=== PATIENT | male | born 1975 | race Caucasian/White ===

== ENCOUNTER 2024-03-09 14:51 | Inpatient (IN) | payer OTHER ==
[~2024-03-09] VITALS: Ht 172.7 cm; Wt 71.0 kg
[2024-03-09 15:46] LABS: BASOPHILS ABSOLUTE AUTO 0.11 K/mm3 (0.00-0.23); BASOPHILS PERCENT AUTO 1 % (0-2); EOSINOPHILS ABSOLUTE AUTO 0.21 K/mm3 (0.00-0.68); EOSINOPHILS PERCENT AUTO 2 % (0-6); Hematocrit 40.9 % (37.0-53.0); Hemoglobin 13.6 g/dL (13.5-17.5); IMMATURE GRAN ABSOLUTE AUTO 0.03 K/mm3 (0.00-0.10); IMMATURE GRAN PERCENT AUTO 0 % (0-1); LYMPHOCYTES ABSOLUTE AUTO 2.38 K/mm3 (0.84-5.20); LYMPHOCYTES PERCENT AUTO 20 % (21-46); MONOCYTES ABSOLUTE AUTO 0.89 K/mm3 (0.16-1.47); MONOCYTES PERCENT AUTO 7 % (4-13); Mean Corpuscular HGB 30.7 pg (26.0-34.0); Mean Corpuscular HGB Conc 33.3 g/dL (31.5-36.5); Mean Corpuscular Volume 92 fL (80-100); Mean Platelet Volume 10.3 fL (9.1-12.4); NEUTROPHILS ABSOLUTE AUTO 8.46 K/mm3 (1.96-9.15); NEUTROPHILS PERCENT AUTO 70 % (41-73); Platelet Count 304 K/mm3 (150-400); RDW Coefficient Variation 11.7 % (11.7-14.2); Red Blood Cell Count 4.43 M/mm3 (4.30-5.90); White Blood Cell Count 12.08 K/mm3 (4.00-11.30)
[2024-03-09 16:06] LABS: Albumin, Blood 2.5 g/dL (3.4-5.0); Albumin/Globulin Ratio 0.4 (0.8-1.8); Bilirubin, Total 1.3 mg/dL (0.1-1.0); Bun/Creatinine Ratio 21.1 (12.0-20.0); Calcium, Blood 9.4 mg/dL (8.5-10.1); Creatinine, Blood 0.52 mg/dL (0.60-1.20); Globulin, Blood 6.2 g/dL (2.2-4.0); Potassium, Blood 4.3 mmol/L (3.5-5.5); Total Protein, Blood 8.7 g/dL (6.4-8.2)
[2024-03-09] MEDS ORDERED: NS 1,000 ML IV SCH ×2 (17:10)
[2024-03-09] MEDS ORDERED: Vancomycin HCL 2,000 MG in NS 520 ML IV ONE (17:25)
[2024-03-09] MEDS ORDERED: Prinivil10 MG PO (18:00)
[2024-03-09] MEDS ORDERED: AMLODIPINE BESY10 MG PO (18:00)
[2024-03-09] MEDS ORDERED: Acetaminophen 325 MG TABLET PO PRN (18:55)
[2024-03-09] MEDS ORDERED: Bisacodyl 10 MG Supp PR PRN (18:55)
[2024-03-09] MEDS ORDERED: FLU VACC TS2024-25(6MOS UP)/PF 45 MCG/0.5 ML SYRINGE IM ONE (19:00)
[2024-03-09] MEDS ORDERED: Magnesium Hydroxide Conc 10 ML UDC PO PRN (19:00)
[2024-03-09] MEDS ORDERED: Ondansetron 4 MG TAB PO PRN (19:00)
[2024-03-09] MEDS ORDERED: Zolpidem Tartrate 5 MG Tab PO PRN (19:05)
[2024-03-09] MEDS ORDERED: NS 1,000 ML IV ONE (19:25)
[2024-03-09] MEDS ORDERED: AmLODIPine Besylate 5 MG Tab PO SCH (21:00)
[2024-03-09] MEDS ORDERED: Famotidine 20 MG Tab PO SCH (21:00)
[2024-03-09] MEDS ORDERED: Sennosides 8.6 MG Tab PO SCH (21:00)
[2024-03-09] MEDS ORDERED: Lactobacil 2-S.Thermo-Bifido 1 1 Cap PO SCH (21:00)
[2024-03-09] MEDS ORDERED: Docusate Sodium 100 MG Cap PO SCH (21:00)
[2024-03-09 22:17] VITALS: BP 116/75
[2024-03-10] MEDS ORDERED: Vancomycin HCL 1,000 MG in NS 250 ML IV SCH (02:00)
[2024-03-10 02:41] VITALS: BP 113/64
[2024-03-10] MEDS ORDERED: NS 250 ML IV PRN (02:45)
[2024-03-10 05:19] LABS: BASOPHILS ABSOLUTE AUTO 0.08 K/mm3 (0.00-0.23); BASOPHILS PERCENT AUTO 1 % (0-2); EOSINOPHILS ABSOLUTE AUTO 0.24 K/mm3 (0.00-0.68); EOSINOPHILS PERCENT AUTO 3 % (0-6); Hematocrit 28.7 % (37.0-53.0); Hemoglobin 9.6 g/dL (13.5-17.5); IMMATURE GRAN ABSOLUTE AUTO 0.03 K/mm3 (0.00-0.10); IMMATURE GRAN PERCENT AUTO 0 % (0-1); LYMPHOCYTES ABSOLUTE AUTO 1.69 K/mm3 (0.84-5.20); LYMPHOCYTES PERCENT AUTO 19 % (21-46); MONOCYTES ABSOLUTE AUTO 1.01 K/mm3 (0.16-1.47); MONOCYTES PERCENT AUTO 12 % (4-13); Mean Corpuscular HGB 31.1 pg (26.0-34.0); Mean Corpuscular HGB Conc 33.4 g/dL (31.5-36.5); Mean Corpuscular Volume 93 fL (80-100); Mean Platelet Volume 10.7 fL (9.1-12.4); NEUTROPHILS ABSOLUTE AUTO 5.75 K/mm3 (1.96-9.15); NEUTROPHILS PERCENT AUTO 65 % (41-73); Platelet Count 183 K/mm3 (150-400); RDW Coefficient Variation 11.9 % (11.7-14.2); RDW Standard Deviation 39.9 fL (35.1-46.3); Red Blood Cell Count 3.09 M/mm3 (4.30-5.90)
--- NOTE | 2024-03-10 06:33 | NUR ---
SHIFT SUMMARY PT ADMITTED TO FLOOR APPROX 2200. HE IS HERE WITH SEPSIS DX. MULTIPLE WOUNDS COVERING MOST OF HIS BODY. THE WOUNDS ARE OPEN, DRAINING, AND BLEEDING. THERE IS A STRONG NECROTIC SMELL TO THE WOUNDS. HIS SKIN IS VERY MOIST, ESPECIALLY IN GROIN AREA. THIS RN, WITH NAVEED Lamb RN, PERFORMED SKIN CHECK, AND THIS RN PHOTOGRAPHED AND DOCUMENTED WOUNDS. PHOTOS WERE SENT FOR PROCESSING, AND WILL BE AVAILABLE IN PT CHART. PT WOUNDS ARE VERY PAINFUL/SENSITIVE. PT DENIED NARCOTIC PAIN MEDICATION, STATING HE D RATHER TAKE TYLENOL OR IBUPROFEN. STATED I DON T LIKE TAKING THOSE OPIOIDS. I D RATHER NOT HAVE THEM AT ALL. PT IS A 0.5 PACK/DAY SMOKER, STATED HE WOULD POSSIBLY LIKE NICOTENE GUM AVAILABLE PRN. PT ADMIT COMPLETED, AND PT IS RESTING IN BED. 0610, CALLED DR. MARTIN TO INFORM HIM PT S BLOOD WORK CAME BACK WITH SIGNIFICANT DROPS FROM 03/09/24 APPROX 1507 TO 03/10/24 APPROX 0437. RBC S DROPPED FROM 4.43 TO 3.09. Hgb DROPPED FROM 13.6 TO 9.6. Hct DROPPED FROM 40.9 TO 28.7. NO ORDERS GIVEN. WILL PASS ON TO DAY SHIFT.
[2024-03-10 08:08] VITALS: BP 109/69
[2024-03-10] MEDS ORDERED: Enoxaparin 40 MG/0.4 ML SYR SC SCH (09:00)
--- NOTE | 2024-03-10 14:29 | NUR ---
Upon receiving a referral for spiritual care, I visited the patient. Patient tells me about his skin condition and the goals of care. He then shares about his spiritual journey, his many jobs and careers and about his personal issues. He is tearful at times and asks for spiritual guidance. I share with him about some possible paths forward and the importance of mental, physical and spiritual health. We also discuss his past and present struggles with addiction and his final addiction of cigarettes to overcome. I listened empathically, reinforced helpful attitudes and practices and provided theological insights and prayer. The patient repsonded well and showed signs of greater peace and catharsis. I will remain available.
[2024-03-10 15:16] VITALS: BP 113/76
--- NOTE | 2024-03-10 15:37 | NUR ---
NO CHANGES FOR PT.
[2024-03-10 17:57] LABS: Vancomycin, Trough 17.8 ug/mL (5.0-10.0)
[2024-03-10 20:11] VITALS: BP 122/76
[2024-03-10] MEDS ORDERED: Protein Supplement 30 ML UD PO SCH (21:00)
[2024-03-11 03:13] VITALS: BP 112/71
[2024-03-11 07:49] VITALS: BP 114/74
[2024-03-11 10:57] LABS: Vancomycin, Trough 47.3 ug/mL (5.0-10.0)
[2024-03-11] MEDS ORDERED: Nicotine Polacrilex 2 MG Gum PO PRN (15:05)
[2024-03-11 15:57] VITALS: BP 123/81
--- NOTE | 2024-03-11 15:57 | NUR ---
PT HAS NO C/O PAIN. NO CHANGES FOR THE PT. PT HAS NO QUESTIONS OR CONCERNS.
[2024-03-11 17:58] LABS: Vancomycin, Trough 15.1 ug/mL (5.0-10.0)
[2024-03-11 20:13] VITALS: BP 116/70
[2024-03-12 02:49] VITALS: BP 109/64
--- NOTE | 2024-03-12 03:46 | NUR ---
SHIFT SUMMARY PT IS A&O X4, COOPERATIVE WITH CARE, PLEASANT. PT DENIES PAIN AND DISCOMFORT DURING THIS SHIFT. PT HAS >3MONTH OLD DEEPTI ON THE LEFT SIDE OF THE SCALP. AND STITCHES THAT ARE COVERED WITH DRY SKIN ON HIS LEFT UPPER CHEECK. AEROSPACE QUALITY ENGINEER NOTIFIED, WILL PASS ON THE INFO TO DAYSHIFT RN. PT HAS A MEPILEX IN THE MIDDLE OF THE CHEST AREA, AN OPEN SCAB ON THE LEFT CARDOZA. THIS C 40A CREW CHIEF USED ACTIVE LISTENING AND EMPATHY. PT RECEPTIVE. PT EXPRESSING FRUSTRATION R/T AWAITING FOR BIOPSY RESULTS THAT WERE DONE IN [facility]. WILL PASS THIS INFO TO CONTACT DR. CHAUDHARI ON . PT IS INDEPENDENT WITHIN THE HOSPITAL ROOM. VANCO INFUSING ORDERED. NEW IV ON LEFT FOREARM 20G. NO ACUTE EVENTS DURING THIS SHIFT. BED AT THE LOWEST POSITION, CALL LIGHT WITHIN REACH. PT IS ABLE TO MAKE HIS NEEDS KNOWN.
[2024-03-12 07:41] VITALS: BP 108/73
--- NOTE | 2024-03-12 15:28 | NUR ---
The patient is talkative today. He expresses his concern about his skin condition and his hopes that some solutions and treatments can be found. He talks about his childhood growing up in [facility] in [facility], his struggles with depression, isolation and alcoholism and his spiritual journey. I provided therapeutic listening, gentle senior counsel commercial and theological insights. Patient responded well and showed signs of greater peace. A spiritual care discharge plan is being formed to assist him on his spiritual goals. I will cotbettynue to remain available to patient and family.
[2024-03-12 15:42] VITALS: BP 113/74
[2024-03-12] MEDS ORDERED: MethylPREDNISolone Sod Succ 125 MG Vial IV SCH (18:00)
--- NOTE | 2024-03-12 19:38 | NUR ---
SHIFT SUMMARY PATIENT A/OX4, INDEPENDENT IN ROOM. PLEASANT AND COOPERATIVE WITH STAFF. DEEPTI AND SUTURES TO LEFT SCALP AND LEFT CHEEK REMOVED TODAY, PATIENT TOLERATED WELL. PATIENT ABLE TO HAVE SHOWER THIS EVENING. DERMATOLOGY CONSULTED AND ASSESSED PATIENT THIS EVENING AND NEW ORDER RECIEVED FOR IV STEROIDS. CONTINUES WITH IV ABX. PATIENT REMOVED FROM CONTACT PRECAUTIONS PER INFECTIOUS CONTROL RECOMMENDATIONS/CONSULT. NO OTHER CONCERNS AT THIS TIME.
[2024-03-12 20:00] VITALS: BP 122/70
[2024-03-12] MEDS ORDERED: Arginine/Glutamine/Calcium Hmb 1 Packet PO SCH (21:00)
--- NOTE | 2024-03-13 03:34 | NUR ---
SHIFT SUMMARY NO ACUTE EVENTS DURING THIS SHIFT. PT EXPRESSES THAT WOULD LIKE TO D/C FROM THE HOSPITAL W/I FEW DAYS, D/T "I NEED TO GET A JOB AND MY OWN PLACE", PER PT STATEMENT. PT DENIES PAIN AND DISCOMFORT. VANCO INFUSED ORDERED. BED AT THE LOWEST POSITION, CALL LIGHT WITHIN REACH. PT IS ABLE TO MAKE HIS NEEDS KNOWN AND IS COOPERATIVE WITH CARE.
[2024-03-13 04:04] VITALS: BP 107/69
[2024-03-13 06:04] LABS: Creatinine, Blood 0.47 mg/dL (0.60-1.20)
[2024-03-13 07:29] VITALS: BP 117/78
[2024-03-13 11:51] LABS: International Normalized Ratio 1.12; Prothrombin Time Results 11.9 Sec (9.7-11.5)
[2024-03-13] MEDS ORDERED: AmLODIPine Besylate 5 MG Tab PO SCH (12:00)
[2024-03-13 17:49] LABS: Vancomycin, Trough 15.7 ug/mL (5.0-10.0)
[2024-03-13 19:26] VITALS: BP 120/68
[2024-03-14 03:04] VITALS: BP 112/68
--- NOTE | 2024-03-14 03:23 | NUR ---
SHIFT SUMMARY NO ACUTE EVENTS DURING THE NOC SHIFT. PT IS COOPERATIVE WITH CARE, IMPROVED MOOD, LOOKING FORWARD TAKING BETTER CARE OF HIMSELF, PER PT REPORT. IV VANCO INFUSED ORDERED. PT IS INDEPENDENT WITHIN THE HOSPITAL ROOM. BED AT THE LOWEST POSITION, CALL LIGHT WITHIN REACH.
[2024-03-14 06:12] LABS: Bun/Creatinine Ratio 40.6 (12.0-20.0); Calcium, Blood 8.5 mg/dL (8.5-10.1); Creatinine, Blood 0.44 mg/dL (0.60-1.20); Potassium, Blood 3.8 mmol/L (3.5-5.5)
[2024-03-14 07:29] VITALS: BP 112/75
[2024-03-14 15:59] VITALS: BP 119/82
[2024-03-14 19:43] VITALS: BP 124/72
--- NOTE | 2024-03-14 19:45 | NUR ---
SHIFT SUMMARY: PT IS A/O X 4, IND IN ROOM, COOPERATIVE WITH CARE. PT CONTINUES TO RECIEVE TREATMENT FOR WOUNDS/SEPSIS. TOLERATING WELL. DR. LEÓN CAME TO VISIT PT AND REPORTED WOUNDS ARE IMPROVED. ACCORDING TO DR. LEÓN PT IS TO TAKE PREDNISONE 50 MG DAILY X 1 WEEK THEN 40 MG DAILY X 1 WEEK AND DOXYCYCLINE 100 MG BID X 2 WEEKS ON DISCHARGE. APPT SCHEDULED FOR 03/[address] LEÓN. PER DR. LEÓN SHE WOULD SPEAK TO HOSPITALIST ABOUT PLAN. WOUND CARE COMPLETED PER ORDERS.
[2024-03-15 02:56] VITALS: BP 127/78
--- NOTE | 2024-03-15 04:01 | NUR ---
SHIFT SUMMARY: PT IS A 48 YO FULL CODE ADMITTED FOR SEPSIS. PT HAS CELLULITIS AND ACNE CONGLOBATA ALL OVER BODY. PT IS IND IN ROOM AND CAN BE DEFENSIVE AT TIMES AND HARD TO COOPERATE WITH SOME OF HIS CARE. PT WOULD NOT ALLOW ME TO LOOK AT HIS WOUNDS ON HIS BODY BECAUSE HE SAID THE DAYSHIFT NURSES ALREADY CHANGED HIS DRESSINGS AND HELPED HIM. THERE IS AM ODOR COMING FROM THE PT'S WOUNDS UNDER THE BLANKET AND WHEN I WAS GOING TO EXAMINE WOUND AND REDRESS WOUND IF NEEDED PT REFSED MY CARE, I EDUCATED THE PT ON THE IMPORTANCE OF WOUND CARE. THE PT SEEMED ANNOYED AND EXPRESSED JUST WANTING TO BE LEFT ALONE TO SLEEP. PT HAS HAD A LARGE APPETITE THIS EVENING AND HAS BEEN AWAKE MOST OF THE EVENING BUT REPORTS NO PAIN. PT'S IV INFILTRATED AFTER HIS LAST DOSE OF VANCO FOR MY SHIFT AND HE EXPRESSES NOT WANTING ANOTHER IV RIGHT NOW AND WANTS TO SLEEP. PT IS SUPPOSED TO D/C TODAY. PT HAS CALL LIGHT IN REACH.
[2024-03-15 07:21] VITALS: BP 113/65
--- NOTE | 2024-03-15 07:23 | NUR ---
REPORT RECEIVED FROM DILEEP CARRASQUILLO. AMAURI ROMO TO COMPLETE HEAD-TO-TOE ASSESSMENT. PATIENT ASLEEP AT THIS TIME. CALL LIGHT WITHIN REACH.
[2024-03-15 07:30] LABS: Bun/Creatinine Ratio 30.1 (12.0-20.0); Calcium, Blood 8.5 mg/dL (8.5-10.1); Creatinine, Blood 0.66 mg/dL (0.60-1.20)
[2024-03-15] MEDS ORDERED: PredniSONE 20 MG Tab PO ONE (09:50)
[2024-03-15] MEDS ORDERED: Doxycycline Hyclate 100 MG TAB PO ONE (09:55)
[2024-03-15] MEDS ORDERED: AMLO5 PO (10:59)
[2024-03-15] MEDS ORDERED: ACET325 PO (10:59)
[2024-03-15] MEDS ORDERED: FAMO20 PO (11:04)
[2024-03-15] MEDS ORDERED: VISBIOME 112.51 EACH PO (11:06)
[2024-03-15] MEDS ORDERED: DOXY100 PO (11:07)
[2024-03-15] MEDS ORDERED: Prednisone10 MG PO (11:11)
--- NOTE | 2024-03-15 11:51 | NUR ---
DISCHARGE A&OX4, COOPERATIVE WITH CARE, INDEPENDENT. NO ACUTE CHANGES THIS SHIFT. DENIED NEED FOR THIS NURSE TO LOOK AT OR DRESS WOUNDS. DENIED ANY CP/PRESSURE, HEADACHE, DIZZINESS, OR SOB. FIXATED ON "NEEDING A CIGARETTE." REVIEWED DISCHRAGE PACKET WITH PATIENT AND EXPLAINED MEDICATIONS. [facility] SENT TO [facility]. PT DENIED ANY QUESTIONS OR CONCERNS. CURRENTLY WAITING FOR RIDE TO ARRIVE WITH CLOTHING. CALL LIGHT WITHIN REACH.
--- NOTE | 2024-03-15 12:40 | NUR ---
PATIENT WALKED OUT WITH HIS RIDE FOR DISCHARGE AT 1240.
== END 2024-03-15 12:46 | disposition home or self-care (01) | DRG 871 ==
LOC: ER 14:51 → ERHOLD 18:53 → MEDS 18:53 → ENPENDDIS 03-15 11:42 → MEDS 03-15 12:46
PROVIDERS: Emergency Medicine; Internal Medicine; ADMIT Hospitalist
DX: A41.9 Sepsis, unspecified organism (principal); R65.21 Severe sepsis with septic shock; L88 Pyoderma gangrenosum; L03.211 Cellulitis of face; L03.311 Cellulitis of abdominal wall; L03.116 Cellulitis of left lower limb; L70.1 Acne conglobata; Z28.21 Immunization not carried out because of patient refusal; I10 Essential (primary) hypertension; Z86.73 Personal history of transient ischemic attack (TIA), and cerebral infarction without residual deficits; F17.210 Nicotine dependence, cigarettes, uncomplicated; Z88.0 Allergy status to penicillin; Z79.899 Other long term (current) drug therapy
CPT/HCPCS: 36415; 80048; 80053; 80202; 82565; 83605; 84520; 85025; 85610; 93005; 93010; 96365; 99284-25; A9270; J2919; J3370; J7030; J7040; J7050; J7512

== ENCOUNTER 2024-10-13 00:44 | Day surgery (SDC) | payer OTHER ==
[~2024-10-13 00:44] MED LIST: ACET325 PO; AMLO10 PO; AMLODIPINE BESY10 MG PO; DOXY100 PO; FAMO20 PO; LISI20 PO; PRED20 PO; Prednisone10 MG PO; Prinivil10 MG PO; VISBIOME 112.51 EACH PO
[2024-10-13 14:13] VITALS: BP 150/99
[2024-10-13 14:53] LABS: BASOPHILS ABSOLUTE AUTO 0.12 K/mm3 (0.00-0.23); BASOPHILS PERCENT AUTO 1 % (0-2); EOSINOPHILS ABSOLUTE AUTO 0.20 K/mm3 (0.00-0.68); EOSINOPHILS PERCENT AUTO 2 % (0-6); Hematocrit 35.2 % (37.0-53.0); Hemoglobin 10.7 g/dL (13.5-17.5); IMMATURE GRAN ABSOLUTE AUTO 0.02 K/mm3 (0.00-0.10); IMMATURE GRAN PERCENT AUTO 0 % (0-1); LYMPHOCYTES ABSOLUTE AUTO 2.07 K/mm3 (0.84-5.20); LYMPHOCYTES PERCENT AUTO 23 % (21-46); MONOCYTES ABSOLUTE AUTO 0.89 K/mm3 (0.16-1.47); MONOCYTES PERCENT AUTO 10 % (4-13); Mean Corpuscular HGB Conc 30.4 g/dL (31.5-36.5); Mean Corpuscular Volume 96 fL (80-100); NEUTROPHILS ABSOLUTE AUTO 5.54 K/mm3 (1.96-9.15); NEUTROPHILS PERCENT AUTO 63 % (41-73); NRBC ABSOLUTE 0.00 K/mm3 (0.00-0.02); NRBC Auto 0.0 /100 WBC (0.0-0.2); Platelet Count 237 K/mm3 (150-400); RDW Coefficient Variation 14.0 % (11.7-14.2); RDW Standard Deviation 49.3 fL (35.1-46.3)
[2024-10-13 15:45] LABS: Alanine Aminotransfer (ALT/SGP 19.0 U/L (12-78); Albumin, Blood 3.1 g/dL (3.4-5.0); Albumin/Globulin Ratio 0.7 (0.8-1.8); Anion Gap 7.0 mmol/L (3-11); Aspartate Aminotrans (AST/SGOT 24.0 U/L (12-37); Bilirubin, Total 0.7 mg/dL (0.1-1.0); Blood Urea Nitrogen 10.0 mg/dL (8-24); CO2, Blood 24.0 mmol/L (21-32); Calcium, Blood 9.0 mg/dL (8.5-10.1); Chloride, Blood 111.0 mmol/L (98-108); Creatinine, Blood 0.74 mg/dL (0.60-1.20); Globulin, Blood 4.6 g/dL (2.2-4.0); Glucose, Blood 86.0 mg/dL (70-99); Potassium, Blood 3.5 mmol/L (3.5-5.5); Sodium, Blood 138.0 mmol/L (136-145); Total Protein, Blood 7.7 g/dL (6.4-8.2)
== END 2024-10-13 16:45 | disposition home or self-care (01) ==
LOC: ATC 00:44
PROVIDERS: General Practice
DX: L88 Pyoderma gangrenosum (principal); I10 Essential (primary) hypertension; Z79.899 Other long term (current) drug therapy; Z88.0 Allergy status to penicillin
CPT/HCPCS: 80053; 85025; 96413; 96415; J7050; Q5103

== ENCOUNTER 2024-10-31 03:46 | Day surgery (SDC) | payer OTHER ==
[2024-10-31 13:54] VITALS: BP 151/96
[2024-10-31] MEDS ORDERED: LOSA50 PO (14:13)
[2024-10-31] MEDS ORDERED: FAMO20 PO (14:13)
[2024-10-31 14:56] LABS: Hematocrit 34.4 % (37.0-53.0); Hemoglobin 11.1 g/dL (13.5-17.5); Mean Corpuscular HGB Conc 32.3 g/dL (31.5-36.5); Mean Corpuscular Volume 92 fL (80-100); NRBC ABSOLUTE 0.00 K/mm3 (0.00-0.02); NRBC Auto 0.0 /100 WBC (0.0-0.2); Platelet Count 174 K/mm3 (150-400); RDW Coefficient Variation 13.8 % (11.7-14.2); RDW Standard Deviation 46.8 fL (35.1-46.3)
[2024-10-31 15:01] VITALS: BP 151/94
[2024-10-31 15:16] LABS: Alanine Aminotransfer (ALT/SGP 30.0 U/L (12-78); Albumin, Blood 3.3 g/dL (3.4-5.0); Albumin/Globulin Ratio 0.8 (0.8-1.8); Anion Gap 8.0 mmol/L (3-11); Aspartate Aminotrans (AST/SGOT 39.0 U/L (12-37); Bilirubin, Total 1.1 mg/dL (0.1-1.0); Blood Urea Nitrogen 10.0 mg/dL (8-24); CO2, Blood 25.0 mmol/L (21-32); Calcium, Blood 8.4 mg/dL (8.5-10.1); Chloride, Blood 107.0 mmol/L (98-108); Creatinine, Blood 0.62 mg/dL (0.60-1.20); Globulin, Blood 4.4 g/dL (2.2-4.0); Glucose, Blood 90.0 mg/dL (70-99); Potassium, Blood 3.5 mmol/L (3.5-5.5); Sodium, Blood 136.0 mmol/L (136-145); Total Protein, Blood 7.7 g/dL (6.4-8.2)
[2024-10-31 15:44] LABS: BASOPHILS ABSOLUTE MAN 0.00 K/mm3 (0.00-0.23); BASOPHILS PERCENT MAN 0 % (0-2); EOSINOPHILS ABSOLUTE MAN 0.24 K/mm3 (0.00-0.68); EOSINOPHILS PERCENT MAN 4 % (0-6); LYMPHOCYTES % ATYPICAL MANUAL 1 % (0-0); LYMPHOCYTES ABSOLUTE MAN 1.68 K/mm3 (0.84-5.20); LYMPHOCYTES PERCENT MAN 26 % (21-46); MONOCYTES ABSOLUTE MAN 0.56 K/mm3 (0.16-1.47); MONOCYTES PERCENT MAN 9 % (4-13); NEUTROPHILS ABSOLUTE MAN 3.74 K/mm3 (1.96-9.15); SEG NEUTROPHILS PERCENT MAN 60 % (41-73)
[2024-10-31 17:06] VITALS: BP 160/92
== END 2024-10-31 17:08 | disposition home or self-care (01) ==
LOC: ATC 03:46
PROVIDERS: General Practice
DX: L88 Pyoderma gangrenosum (principal); I10 Essential (primary) hypertension; Z79.899 Other long term (current) drug therapy; Z88.0 Allergy status to penicillin
CPT/HCPCS: 80053; 85025; 96413; 96415; J7050; Q5103

== ENCOUNTER 2024-11-28 01:40 | Day surgery (SDC) | payer OTHER ==
[~2024-11-28 01:40] MED LIST changes: +LOSA50 PO
[2024-11-28 15:30] VITALS: BP 147/89
[2024-11-28] MEDS ORDERED: INFLECTRA100 MG IV (15:31)
[2024-11-28 16:54] LABS: BASOPHILS ABSOLUTE AUTO 0.06 K/mm3 (0.00-0.23); BASOPHILS PERCENT AUTO 1 % (0-2); EOSINOPHILS ABSOLUTE AUTO 0.08 K/mm3 (0.00-0.68); EOSINOPHILS PERCENT AUTO 2 % (0-6); Hematocrit 36.2 % (37.0-53.0); Hemoglobin 11.7 g/dL (13.5-17.5); IMMATURE GRAN ABSOLUTE AUTO 0.00 K/mm3 (0.00-0.10); IMMATURE GRAN PERCENT AUTO 0 % (0-1); LYMPHOCYTES ABSOLUTE AUTO 1.74 K/mm3 (0.84-5.20); LYMPHOCYTES PERCENT AUTO 40 % (21-46); MONOCYTES ABSOLUTE AUTO 0.68 K/mm3 (0.16-1.47); MONOCYTES PERCENT AUTO 16 % (4-13); Mean Corpuscular HGB Conc 32.3 g/dL (31.5-36.5); Mean Corpuscular Volume 92 fL (80-100); NEUTROPHILS ABSOLUTE AUTO 1.77 K/mm3 (1.96-9.15); NEUTROPHILS PERCENT AUTO 41 % (41-73); NRBC ABSOLUTE 0.00 K/mm3 (0.00-0.02); NRBC Auto 0.0 /100 WBC (0.0-0.2); Platelet Count 132 K/mm3 (150-400); RDW Coefficient Variation 14.2 % (11.7-14.2); RDW Standard Deviation 48.8 fL (35.1-46.3)
[2024-11-28 17:47] LABS: Alanine Aminotransfer (ALT/SGP 30.0 U/L (12-78); Albumin, Blood 3.5 g/dL (3.4-5.0); Albumin/Globulin Ratio 0.9 (0.8-1.8); Anion Gap 7.0 mmol/L (3-11); Aspartate Aminotrans (AST/SGOT 31.0 U/L (12-37); Bilirubin, Total 0.4 mg/dL (0.1-1.0); Blood Urea Nitrogen 11.0 mg/dL (8-24); CO2, Blood 28.0 mmol/L (21-32); Calcium, Blood 9.2 mg/dL (8.5-10.1); Chloride, Blood 106.0 mmol/L (98-108); Creatinine, Blood 0.62 mg/dL (0.60-1.20); Globulin, Blood 4.1 g/dL (2.2-4.0); Glucose, Blood 139.0 mg/dL (70-99); Potassium, Blood 3.5 mmol/L (3.5-5.5); Sodium, Blood 137.0 mmol/L (136-145); Total Protein, Blood 7.6 g/dL (6.4-8.2)
== END 2024-11-28 18:45 | disposition home or self-care (01) ==
LOC: ATC 01:40
PROVIDERS: General Practice
DX: L88 Pyoderma gangrenosum (principal); I10 Essential (primary) hypertension; Z79.899 Other long term (current) drug therapy; Z88.0 Allergy status to penicillin
CPT/HCPCS: 80053; 85025; 96413; 96415; J7050; Q5103

== ENCOUNTER 2025-01-23 01:06 | Day surgery (SDC) | payer OTHER ==
[~2025-01-23 01:06] MED LIST changes: +INFLECTRA100 MG IV
[2025-01-23 15:05] VITALS: BP 139/80
[2025-01-23 15:47] LABS: BASOPHILS ABSOLUTE AUTO 0.10 K/mm3 (0.00-0.23); BASOPHILS PERCENT AUTO 1 % (0-2); EOSINOPHILS ABSOLUTE AUTO 0.29 K/mm3 (0.00-0.68); EOSINOPHILS PERCENT AUTO 4 % (0-6); Hematocrit 42.3 % (37.0-53.0); Hemoglobin 13.5 g/dL (13.5-17.5); IMMATURE GRAN ABSOLUTE AUTO 0.02 K/mm3 (0.00-0.10); IMMATURE GRAN PERCENT AUTO 0 % (0-1); LYMPHOCYTES ABSOLUTE AUTO 2.05 K/mm3 (0.84-5.20); LYMPHOCYTES PERCENT AUTO 26 % (21-46); MONOCYTES ABSOLUTE AUTO 0.87 K/mm3 (0.16-1.47); MONOCYTES PERCENT AUTO 11 % (4-13); Mean Corpuscular HGB Conc 31.9 g/dL (31.5-36.5); Mean Corpuscular Volume 94 fL (80-100); NEUTROPHILS ABSOLUTE AUTO 4.69 K/mm3 (1.96-9.15); NEUTROPHILS PERCENT AUTO 59 % (41-73); NRBC ABSOLUTE 0.00 K/mm3 (0.00-0.02); NRBC Auto 0.0 /100 WBC (0.0-0.2); Platelet Count 206 K/mm3 (150-400); RDW Coefficient Variation 13.4 % (11.7-14.2); RDW Standard Deviation 47.1 fL (35.1-46.3)
[2025-01-23 16:39] LABS: Alanine Aminotransfer (ALT/SGP 38.0 U/L (12-78); Albumin, Blood 3.5 g/dL (3.4-5.0); Albumin/Globulin Ratio 0.8 (0.8-1.8); Anion Gap 8.0 mmol/L (3-11); Aspartate Aminotrans (AST/SGOT 20.0 U/L (12-37); Bilirubin, Total 0.5 mg/dL (0.1-1.0); Blood Urea Nitrogen 15.0 mg/dL (8-24); CO2, Blood 29.0 mmol/L (21-32); Calcium, Blood 9.2 mg/dL (8.5-10.1); Chloride, Blood 106.0 mmol/L (98-108); Creatinine, Blood 0.89 mg/dL (0.60-1.20); Globulin, Blood 4.5 g/dL (2.2-4.0); Glucose, Blood 117.0 mg/dL (70-99); Potassium, Blood 3.5 mmol/L (3.5-5.5); Sodium, Blood 139.0 mmol/L (136-145); Total Protein, Blood 8.0 g/dL (6.4-8.2)
== END 2025-01-23 17:34 | disposition home or self-care (01) ==
LOC: ATC 01:06
PROVIDERS: General Practice
DX: L88 Pyoderma gangrenosum (principal)
CPT/HCPCS: 80053; 85025; 96413; 96415; J7050; Q5103

== ENCOUNTER 2025-03-13 12:07 | Inpatient (IN) | payer OTHER ==
[~2025-03-13] VITALS: Ht 172.7 cm; Wt 77.1 kg
[~2025-03-13 12:07] MED LIST changes: +CYCLOSPORINE 100 MG PO SCH
[2025-03-13 13:07] LABS: BASOPHILS ABSOLUTE AUTO 0.07 K/mm3 (0.00-0.23); BASOPHILS PERCENT AUTO 1 % (0-2); EOSINOPHILS ABSOLUTE AUTO 0.03 K/mm3 (0.00-0.68); EOSINOPHILS PERCENT AUTO 0 % (0-6); Hematocrit 43.1 % (37.0-53.0); Hemoglobin 14.0 g/dL (13.5-17.5); IMMATURE GRAN ABSOLUTE AUTO 0.10 K/mm3 (0.00-0.10); IMMATURE GRAN PERCENT AUTO 1 % (0-1); LYMPHOCYTES ABSOLUTE AUTO 1.03 K/mm3 (0.84-5.20); LYMPHOCYTES PERCENT AUTO 7 % (21-46); MONOCYTES ABSOLUTE AUTO 0.25 K/mm3 (0.16-1.47); MONOCYTES PERCENT AUTO 2 % (4-13); Mean Corpuscular HGB Conc 32.5 g/dL (31.5-36.5); Mean Corpuscular Volume 94 fL (80-100); NEUTROPHILS ABSOLUTE AUTO 12.44 K/mm3 (1.96-9.15); NEUTROPHILS PERCENT AUTO 89 % (41-73); NRBC ABSOLUTE 0.00 K/mm3 (0.00-0.02); NRBC Auto 0.0 /100 WBC (0.0-0.2); Platelet Count 199 K/mm3 (150-400); RDW Coefficient Variation 12.4 % (11.7-14.2); RDW Standard Deviation 42.5 fL (35.1-46.3)
[2025-03-13 13:24] LABS: C-REACTIVE PROTEIN, EXT RANGE <0.290 mg/dL (0.000-0.300)
[2025-03-13 13:26] LABS: Alanine Aminotransfer (ALT/SGP 47 U/L (12-78); Albumin, Blood 3.7 g/dL (3.4-5.0); Albumin/Globulin Ratio 0.9 (0.8-1.8); Anion Gap 9 mmol/L (3-11); Aspartate Aminotrans (AST/SGOT 28 U/L (12-37); Bilirubin, Total 0.6 mg/dL (0.1-1.0); Blood Urea Nitrogen 19 mg/dL (8-24); CO2, Blood 23 mmol/L (21-32); Calcium, Blood 9.6 mg/dL (8.5-10.1); Chloride, Blood 107 mmol/L (98-108); Creatinine, Blood 0.86 mg/dL (0.60-1.20); Globulin, Blood 4.1 g/dL (2.2-4.0); Glucose, Blood 228 mg/dL (70-99); Potassium, Blood 4.1 mmol/L (3.5-5.5); Sodium, Blood 135 mmol/L (136-145); Total Protein, Blood 7.8 g/dL (6.4-8.2)
[2025-03-13] MEDS ORDERED: OMEP20ER PO (16:35)
[2025-03-13] MEDS ORDERED: DOXY100 PO (16:36)
[2025-03-13] MEDS ORDERED: Prednisone10 MG PO (16:36)
[2025-03-13] MEDS ORDERED: FLU VACC TS2025-26(6MOS UP)/PF 45 MCG/0.5 ML SYRINGE IM SCH (18:00)
[2025-03-13 19:44] VITALS: BP 155/106
--- NOTE | 2025-03-13 21:20 | NUR ---
PICTURES TAKEN AND IN CHART. CONSENT SIGNED
[2025-03-14 04:40] VITALS: BP 132/86
--- NOTE | 2025-03-14 06:15 | NUR ---
SHIFT SUMMARY PT A&OX4 AND AND ANSWERS QUESTIONS APPROPRIATELY. PT ARRIVED ON UNIT AT AROUND 1940 AND INDEPENDENTLY TRANSFERRED TO THE BED. PT HERE FOR PYODERMA GANGRENOSUM, PICTURES IN CHART. VSS, NO COMPLAINTS OF CP/PRESSURE OR SOB. PT RECEIVED SCHEDULED MEDS. NO COMPLAINTS OF PAIN AT THIS TIME. NO ACUTE EVENTS AT THIS TIME. PT SPENT MOST OF SHIFT IN BED WITH EYES CLSOED AND RESPIRATIONS EVEN AND UNLABORED. PT LEFT IN A POSITION OF SAFETY WITH FALL PRECAUTIONS IN PLACE AND CALL LIGHT IN REACH.
[2025-03-14 07:34] VITALS: BP 140/91
[2025-03-14] MEDS ORDERED: Enoxaparin 40 MG/0.4 ML SYR SC SCH (09:00)
--- NOTE | 2025-03-14 10:11 | NUR ---
NOTE ONE TIME CBG DONE PER DR WHITE, RESULT 111.
[2025-03-14 15:31] VITALS: BP 143/90
--- NOTE | 2025-03-14 18:46 | NUR ---
END OF SHIFT NOTE PATIENT RESTING IN BED. A&O3-4, SOME CONFUSION ABOUT DATES. FAMILY IN TO VISIT THIS EVENING. COCCYX CLEANED AND REDRESSED, NEW PICTURES IN CHART, DR SENA MADE AWARE AT BEDSIDE. LEFT FOOT WOUND CLEAN, WRAPPED AND NEW PICTURES IN CHART, DR SENA MADE AWARE AT BEDSIDE. [place] IN PLACE, DRAINING TO GRAVITY, YELLOW URINE. ATTENDS IN PLACE. PATIENT DECLINED BOWEL CARE MEDICAITON TODAY, PATIENT STATES "ITS BEEN ALMOST 2 WEEKS SINCE I POOPED". EDUCATED ABOUT BOWEL CARE IN THE HOSPITAL. TURNING POSITION MUCH PATIENT WILL ALLOW, HEALS FLOATED.NO OTHER CONCERNS FOR THIS SHIFT.
--- NOTE | 2025-03-14 19:23 | NUR ---
END OF SHIFT NOTE PATIENT RESTING IN BED. A&O4, IND IN ROOM. IV SL, FLUSHES WELL. PATIENT DENIES NEEDS OR QUESTIONS, CALL LIGHT IN REACH, ABLE TO MAKE NEEDS KNOWN. NO OTHER CONCERNS FOR THIS SHIFT.
[2025-03-14 19:28] VITALS: BP 126/72
[2025-03-14] MEDS ORDERED: Clobetasol Prop 0.05% Cream 15 gm TOP SCH (21:00)
[2025-03-15 03:29] VITALS: BP 142/81
[2025-03-15 03:38] LABS: Source, Urine Clean Catch
[2025-03-15 03:44] LABS: Bilirubin, Urine Neg (Neg); Glucose Qualitative, Urine Neg (Neg); Ketones, Urine Neg (Neg); Leukocyte Esterase, Urine Neg (Neg); Protein, Urine Neg (Neg); Specific Gravity, Urine 1.020 (1.003-1.022); Urobilinogen, Urine NORM (Normal)
[2025-03-15 03:50] LABS: Color, Urine Pale Yellow (P-Yellow)
[2025-03-15 03:51] LABS: Red Blood Cells, Urine 0-2 /hpf (0-2); White Blood Cells, Urine Not Seen /hpf (0-5)
--- NOTE | 2025-03-15 06:11 | NUR ---
NOC SHIFT SUMMARY PT A&OX4, VSS, AMB IND, TOLERATING PO, VOIDING, AND DENIED PAIN. ABX GIVEN PER ORDER. PT REFUSED CREAM LAST NIGHT, REQUESTED CREAM TO BE APPLIED AFTER SHOWER THIS AM. NO ACUTE CHANGES. CALL LIGHT WITHIN REACH AND PT ABLE TO MAKE NEEDS KNOWN.
[2025-03-15 06:31] LABS: BASOPHILS ABSOLUTE AUTO 0.10 K/mm3 (0.00-0.23); BASOPHILS PERCENT AUTO 1 % (0-2); EOSINOPHILS ABSOLUTE AUTO 0.16 K/mm3 (0.00-0.68); EOSINOPHILS PERCENT AUTO 1 % (0-6); Hematocrit 41.1 % (37.0-53.0); Hemoglobin 13.2 g/dL (13.5-17.5); IMMATURE GRAN ABSOLUTE AUTO 0.04 K/mm3 (0.00-0.10); IMMATURE GRAN PERCENT AUTO 0 % (0-1); LYMPHOCYTES ABSOLUTE AUTO 3.04 K/mm3 (0.84-5.20); LYMPHOCYTES PERCENT AUTO 26 % (21-46); MONOCYTES ABSOLUTE AUTO 1.07 K/mm3 (0.16-1.47); MONOCYTES PERCENT AUTO 9 % (4-13); Mean Corpuscular HGB Conc 32.1 g/dL (31.5-36.5); Mean Corpuscular Volume 93 fL (80-100); NEUTROPHILS ABSOLUTE AUTO 7.15 K/mm3 (1.96-9.15); NEUTROPHILS PERCENT AUTO 62 % (41-73); NRBC ABSOLUTE 0.00 K/mm3 (0.00-0.02); NRBC Auto 0.0 /100 WBC (0.0-0.2); Platelet Count 179 K/mm3 (150-400); RDW Coefficient Variation 12.3 % (11.7-14.2); RDW Standard Deviation 42.3 fL (35.1-46.3)
[2025-03-15 06:52] LABS: Uric Acid, Blood 5.3 mg/dL (3.5-7.2)
[2025-03-15 06:53] LABS: Alanine Aminotransfer (ALT/SGP 46.0 U/L (12-78); Albumin, Blood 3.2 g/dL (3.4-5.0); Albumin/Globulin Ratio 0.8 (0.8-1.8); Anion Gap 7.0 mmol/L (3-11); Aspartate Aminotrans (AST/SGOT 24.0 U/L (12-37); Bilirubin, Total 0.5 mg/dL (0.1-1.0); Blood Urea Nitrogen 16.0 mg/dL (8-24); CO2, Blood 27.0 mmol/L (21-32); Calcium, Blood 8.6 mg/dL (8.5-10.1); Chloride, Blood 108.0 mmol/L (98-108); Creatinine, Blood 0.8 mg/dL (0.60-1.20); Globulin, Blood 4.0 g/dL (2.2-4.0); Glucose, Blood 78.0 mg/dL (70-99); Potassium, Blood 3.6 mmol/L (3.5-5.5); Sodium, Blood 138.0 mmol/L (136-145); Total Protein, Blood 7.2 g/dL (6.4-8.2)
[2025-03-15 07:25] VITALS: BP 136/96
[2025-03-15] MEDS ORDERED: [UNRECOGNIZED DRUG - OTHER] TOP SCH (09:00)
[2025-03-15] MEDS ORDERED: CHLORHEXIDINE 4% TOP SCH (09:00)
[2025-03-15] MEDS ORDERED: CYCLOSPORINE 100 MG PO SCH (09:00)
[2025-03-15] MEDS ORDERED: Cholecalciferol 1000 Unit Tablet (=25MCG) PO SCH (09:00)
[2025-03-15] MEDS ORDERED: CeFAZolin Sodium 1,000 MG in NS 50 ML IV SCH (09:08)
[2025-03-15] MEDS ORDERED: NS 250 ML IV PRN (11:05)
--- NOTE | 2025-03-15 18:00 | NUR ---
END OF SHIFT NOTE PATIENT RESTING IN BED, A&O4, IND IN ROOM AND TO BATHROOM, ABLE TO MAKE NEEDS KNOWN. IV INFUSING TO ORDER. WOUND CARE DONE TO ORDER, BID TODAY. PATIENT SHOWERED TODAY, BEDDING CHANGED. PATIENT DENIES NEEDS OR QUESTIONS. NO OTHER CONCERNS FOR THIS SHIFT
[2025-03-15 20:06] VITALS: BP 135/79
[2025-03-16 03:59] VITALS: BP 152/97
--- NOTE | 2025-03-16 06:03 | NUR ---
SHIFT SUMMARY PATIENT ADMITTED FOR PYRDERMA GANGRENISUM. ALERT AND ORIENTED X4. VSS. PATIENT REFUSED TEMOVATE CREAM ON LEGS THIS SHIFT STATING I TALKED TO MY BODY BUILDER APPRENTICE. I AM GOING TO LEAVE THE WRAPS IN PLACE OVERNIGHT, TAKE A SHOWER TOMORROW AND REAPPLY THE CREAM THEN WHEN MY BODY BUILDER APPRENTICE COMES IN. NO ACUTE EVENTS THIS SHIFT. PATIENT RESTING AT THIS TIME WITH EYES CLOSED, RESPIRATIONS EVEN AND UNLABORED. PATIENT INDEPENDENT IN ROOM. BED RAILS UP X2. BED IN LOWEST POSITION FOR SAFETY. CALL LIGHT WITHIN REACH.
[2025-03-16 06:53] LABS: BASOPHILS ABSOLUTE AUTO 0.06 K/mm3 (0.00-0.23); BASOPHILS PERCENT AUTO 1 % (0-2); EOSINOPHILS ABSOLUTE AUTO 0.14 K/mm3 (0.00-0.68); EOSINOPHILS PERCENT AUTO 1 % (0-6); Hematocrit 42.0 % (37.0-53.0); Hemoglobin 13.5 g/dL (13.5-17.5); IMMATURE GRAN ABSOLUTE AUTO 0.04 K/mm3 (0.00-0.10); IMMATURE GRAN PERCENT AUTO 0 % (0-1); LYMPHOCYTES ABSOLUTE AUTO 2.87 K/mm3 (0.84-5.20); LYMPHOCYTES PERCENT AUTO 27 % (21-46); MONOCYTES ABSOLUTE AUTO 0.91 K/mm3 (0.16-1.47); MONOCYTES PERCENT AUTO 9 % (4-13); Mean Corpuscular HGB Conc 32.1 g/dL (31.5-36.5); Mean Corpuscular Volume 93 fL (80-100); NEUTROPHILS ABSOLUTE AUTO 6.61 K/mm3 (1.96-9.15); NEUTROPHILS PERCENT AUTO 62 % (41-73); NRBC ABSOLUTE 0.00 K/mm3 (0.00-0.02); NRBC Auto 0.0 /100 WBC (0.0-0.2); Platelet Count 158 K/mm3 (150-400); RDW Coefficient Variation 12.4 % (11.7-14.2); RDW Standard Deviation 42.3 fL (35.1-46.3)
[2025-03-16 07:11] LABS: Alanine Aminotransfer (ALT/SGP 43.0 U/L (12-78); Albumin, Blood 3.1 g/dL (3.4-5.0); Albumin/Globulin Ratio 0.8 (0.8-1.8); Anion Gap 8.0 mmol/L (3-11); Aspartate Aminotrans (AST/SGOT 22.0 U/L (12-37); Bilirubin, Total 0.5 mg/dL (0.1-1.0); Blood Urea Nitrogen 16.0 mg/dL (8-24); CO2, Blood 27.0 mmol/L (21-32); Calcium, Blood 8.9 mg/dL (8.5-10.1); Chloride, Blood 107.0 mmol/L (98-108); Creatinine, Blood 0.78 mg/dL (0.60-1.20); Globulin, Blood 4.1 g/dL (2.2-4.0); Glucose, Blood 83.0 mg/dL (70-99); Potassium, Blood 3.8 mmol/L (3.5-5.5); Sodium, Blood 138.0 mmol/L (136-145); Total Protein, Blood 7.2 g/dL (6.4-8.2)
[2025-03-16 07:39] VITALS: BP 141/93
[2025-03-16 10:44] VITALS: BP 128/84
[2025-03-16 16:47] VITALS: BP 144/96
--- NOTE | 2025-03-16 18:19 | NUR ---
SHIFT SUMMARY- PT ALERT, ORTIENTED AND INDEPENDENT IN THE ROOM. PT HAD WOUND CARE COMPLETED, TWICE THIS SHIFT DUE TO DIFFERING ORDERS. SPOKE TO SKIN DR AND DR BUCKLEY BOTH AGREE THE MEPITEL IS TO BE PLACED OVER THE OPEN AREAS, MEDICATION AND WASHING IS TO BE DONE WITH THE MEPITEL IN PLACE. TELFA AND GAUZE ARE CHANGED WITH EACH DRESSING CHANGE. MEPITEL TO REMAI I PLACE FOR 14 DAYS.
[2025-03-16 19:39] VITALS: BP 126/75
[2025-03-17 00:37] VITALS: BP 118/80
[2025-03-17 05:13] VITALS: BP 128/90
[2025-03-17 05:43] LABS: BASOPHILS ABSOLUTE AUTO 0.05 K/mm3 (0.00-0.23); BASOPHILS PERCENT AUTO 0 % (0-2); EOSINOPHILS ABSOLUTE AUTO 0.09 K/mm3 (0.00-0.68); EOSINOPHILS PERCENT AUTO 1 % (0-6); Hematocrit 43.9 % (37.0-53.0); Hemoglobin 14.0 g/dL (13.5-17.5); IMMATURE GRAN ABSOLUTE AUTO 0.04 K/mm3 (0.00-0.10); IMMATURE GRAN PERCENT AUTO 0 % (0-1); LYMPHOCYTES ABSOLUTE AUTO 2.88 K/mm3 (0.84-5.20); LYMPHOCYTES PERCENT AUTO 25 % (21-46); MONOCYTES ABSOLUTE AUTO 0.71 K/mm3 (0.16-1.47); MONOCYTES PERCENT AUTO 6 % (4-13); Mean Corpuscular HGB Conc 31.9 g/dL (31.5-36.5); Mean Corpuscular Volume 94 fL (80-100); NEUTROPHILS ABSOLUTE AUTO 7.58 K/mm3 (1.96-9.15); NEUTROPHILS PERCENT AUTO 67 % (41-73); NRBC ABSOLUTE 0.00 K/mm3 (0.00-0.02); NRBC Auto 0.0 /100 WBC (0.0-0.2); Platelet Count 180 K/mm3 (150-400); RDW Coefficient Variation 12.3 % (11.7-14.2); RDW Standard Deviation 42.5 fL (35.1-46.3)
--- NOTE | 2025-03-17 06:12 | NUR ---
Shift Summary No acute changes. Mepitels left in place as they are to remain for 14 days per report. Cream placed on top of mepitels as instructed in report. Other guaze dressings remain C/D/I. Pt is AOx4, independent in the room. No c/o of pain or discomfort. Pt slept t/o most of the night.
[2025-03-17 06:17] LABS: Alanine Aminotransfer (ALT/SGP 47.0 U/L (12-78); Albumin, Blood 3.5 g/dL (3.4-5.0); Albumin/Globulin Ratio 0.8 (0.8-1.8); Anion Gap 8.0 mmol/L (3-11); Aspartate Aminotrans (AST/SGOT 21.0 U/L (12-37); Bilirubin, Total 0.6 mg/dL (0.1-1.0); Blood Urea Nitrogen 14.0 mg/dL (8-24); CO2, Blood 29.0 mmol/L (21-32); Calcium, Blood 9.0 mg/dL (8.5-10.1); Chloride, Blood 106.0 mmol/L (98-108); Creatinine, Blood 0.79 mg/dL (0.60-1.20); Globulin, Blood 4.2 g/dL (2.2-4.0); Glucose, Blood 89.0 mg/dL (70-99); Potassium, Blood 3.7 mmol/L (3.5-5.5); Sodium, Blood 139.0 mmol/L (136-145); Total Protein, Blood 7.7 g/dL (6.4-8.2)
[2025-03-17 07:29] VITALS: BP 124/87
--- NOTE | 2025-03-17 19:54 | NUR ---
SHIFT SUMMARY- MEETING TODAY BETWEEN THE RESIDENTS AND DR KAY CLARIFIED WOUND CARE ORDERS, WOUND SWAB COMPLETED PER DR KAY, DISCUSSED CHANGING THE WOUND CARE ON THE LEFT CALF AND USING GENTOMYACIN. THAT ORDER WAS NOT IN AT CHANGE OF SHIFT SO CALLED DR KAY FOR CLARIFICATION. SHE RESUBMITTED THE ORDER. WOUND CARE ORDERS CHANGED TO MATCH THE DISCUSSED WOUND CARE ORDERS TODAY. SHE ALSO REQUESTED A SECOND UA THE PT HAD A UA THAT SHOWED SOME BLOOD SHE WANTS A NEW COLLECTION TO ENSURE THE ISSUE IS RESOLVED. PT IS AWARE OF THE SAMPLE NEED. PASSED ON TO NIGHT RN IN BEDSIDE REPORT.
[2025-03-17] MEDS ORDERED: GENTAMICIN SULFATE TOP PRN (19:55)
[2025-03-17] MEDS ORDERED: [UNRECOGNIZED DRUG - OTHER] TOP PRN (19:55)
[2025-03-17] MEDS ORDERED: GENTAMICIN SULFATE TOP SCH (20:30)
[2025-03-17] MEDS ORDERED: [UNRECOGNIZED DRUG - OTHER] TOP SCH (20:30)
[2025-03-17 21:56] VITALS: BP 145/93
--- NOTE | 2025-03-18 03:46 | NUR ---
SHIFT SUMMARY ADMITTED FOR HTN AND PYODERMA GANGRENOSUM. FULL CODE. PLAN IS TO DC TODAY. DERMATOLOGY CONSULT IS DR. KAY. HE IS A&O X4, INDEPENDENT, ON RA, REGULAR DIET. PLAN IS TO TAPER STEROIDS AND CONTINUE ANTIB RX. GENTAMYACIN CREAM APPLIED TO LEFT CALF WOUND. CLOBETASOL CREAM APPLIED TO BILAT THIGH WOUNDS AND RIGHT CALF WOUND OVER MEPITEL. THIS PT WILL MOVE TO [place] ON 03/21/25.
[2025-03-18 04:01] VITALS: BP 116/79
[2025-03-18 04:04] LABS: Source, Urine Clean Catch
[2025-03-18 04:33] LABS: Bilirubin, Urine Neg (Neg); Glucose Qualitative, Urine Neg (Neg); Ketones, Urine Neg (Neg); Leukocyte Esterase, Urine Neg (Neg); Protein, Urine Neg (Neg); Specific Gravity, Urine 1.015 (1.003-1.022); Urobilinogen, Urine NORM (Normal)
[2025-03-18 04:51] LABS: BASOPHILS ABSOLUTE AUTO 0.06 K/mm3 (0.00-0.23); BASOPHILS PERCENT AUTO 1 % (0-2); EOSINOPHILS ABSOLUTE AUTO 0.14 K/mm3 (0.00-0.68); EOSINOPHILS PERCENT AUTO 1 % (0-6); Hematocrit 41.8 % (37.0-53.0); Hemoglobin 13.7 g/dL (13.5-17.5); IMMATURE GRAN ABSOLUTE AUTO 0.03 K/mm3 (0.00-0.10); IMMATURE GRAN PERCENT AUTO 0 % (0-1); LYMPHOCYTES ABSOLUTE AUTO 3.02 K/mm3 (0.84-5.20); LYMPHOCYTES PERCENT AUTO 30 % (21-46); MONOCYTES ABSOLUTE AUTO 0.93 K/mm3 (0.16-1.47); MONOCYTES PERCENT AUTO 9 % (4-13); Mean Corpuscular HGB Conc 32.8 g/dL (31.5-36.5); Mean Corpuscular Volume 92 fL (80-100); NEUTROPHILS ABSOLUTE AUTO 5.87 K/mm3 (1.96-9.15); NEUTROPHILS PERCENT AUTO 58 % (41-73); NRBC ABSOLUTE 0.00 K/mm3 (0.00-0.02); NRBC Auto 0.0 /100 WBC (0.0-0.2); Platelet Count 158 K/mm3 (150-400); RDW Coefficient Variation 12.3 % (11.7-14.2); RDW Standard Deviation 41.6 fL (35.1-46.3)
[2025-03-18 05:02] LABS: Color, Urine Pale Yellow (P-Yellow)
[2025-03-18 05:11] LABS: Alanine Aminotransfer (ALT/SGP 53.0 U/L (12-78); Albumin, Blood 3.1 g/dL (3.4-5.0); Albumin/Globulin Ratio 0.8 (0.8-1.8); Anion Gap 7.0 mmol/L (3-11); Aspartate Aminotrans (AST/SGOT 31.0 U/L (12-37); Bilirubin, Total 0.5 mg/dL (0.1-1.0); Blood Urea Nitrogen 14.0 mg/dL (8-24); CO2, Blood 27.0 mmol/L (21-32); Calcium, Blood 8.6 mg/dL (8.5-10.1); Chloride, Blood 109.0 mmol/L (98-108); Creatinine, Blood 0.81 mg/dL (0.60-1.20); Globulin, Blood 4.0 g/dL (2.2-4.0); Glucose, Blood 85.0 mg/dL (70-99); Magnesium, Blood 2.0 mg/dL (1.6-2.4); Potassium, Blood 3.8 mmol/L (3.5-5.5); Sodium, Blood 139.0 mmol/L (136-145); Total Protein, Blood 7.1 g/dL (6.4-8.2)
[2025-03-18 08:14] VITALS: BP 143/100
[2025-03-18] MEDS ORDERED: [UNRECOGNIZED DRUG - OTHER] TOP SCH (09:00)
[2025-03-18] MEDS ORDERED: GENTAMICIN SULFATE TOP SCH (09:00)
[2025-03-18] MEDS ORDERED: GENTAMICIN SULFATE 0.1% TOP SCH (09:00)
[2025-03-18] MEDS ORDERED: CEPH500 PO (14:56)
[2025-03-18] MEDS ORDERED: AMLO5 PO (14:56)
[2025-03-18] MEDS ORDERED: CLOBETASOL EMOL15 G1 TOP (14:57)
[2025-03-18] MEDS ORDERED: CYCLOSPORINE PO (14:58)
[2025-03-18] MEDS ORDERED: MUPIROCIN2210 TOP (14:59)
[2025-03-18] MEDS ORDERED: Vitamin D1000 UNI1 PO (15:00)
[2025-03-18] MEDS ORDERED: Gengraf25 MG PO (15:02)
[2025-03-18] MEDS ORDERED: Prednisone10 MG PO (15:03)
[2025-03-18 15:16] VITALS: BP 132/89
--- NOTE | 2025-03-18 17:59 | NUR ---
DISCHARGE NOTE- PT WAS PROVIDED VERBAL AND WRITTEN DISCHAGR EINSTRUCTIONS. HE WAS ABLE TO DEMONSTRATE WOUND CARE BACK TO THIS RN. HE IS AWARE OF THE PLAN MOVING FORWARD WITH HIS CARE. PT DISCHARGED TO THE [facility]. HE DECLINED WC AND WALKED OUT ON HIS OWN WITH THIS RN ESCORT. IV DC'D AT THE TIME OF DISCHARGE. NO S&S OF DISTRESS NOTED AT THE TIME OF DISCHARGE.
[2025-03-19 10:33] LABS: DOUBLE-STRANDED DNA IGG ELISA 5 IU (0-24)
== END 2025-03-18 16:39 | disposition home or self-care (01) | DRG 603 ==
LOC: ER 12:07 → MEDS 12:08
PROVIDERS: General Practice; Internal Medicine; Physician Assistant; Student in an Organized Health Care Education/Training Program; ADMIT Student in an Organized Health Care Education/Training Program
DX: L88 Pyoderma gangrenosum (principal); Z59.02 Unsheltered homelessness; Z16.29 Resistance to other single specified antibiotic; E27.8 Other specified disorders of adrenal gland; R76.0 Raised antibody titer; I10 Essential (primary) hypertension; R73.9 Hyperglycemia, unspecified; K76.89 Other specified diseases of liver; F17.200 Nicotine dependence, unspecified, uncomplicated; D89.0 Polyclonal hypergammaglobulinemia; B95.61 Methicillin susceptible Staphylococcus aureus infection as the cause of diseases classified elsewhere; Z86.73 Personal history of transient ischemic attack (TIA), and cerebral infarction without residual deficits; Z88.0 Allergy status to penicillin; Z79.52 Long term (current) use of systemic steroids; Z79.620 Long term (current) use of immunosuppressive biologic; Z63.8 Other specified problems related to primary support group; Z60.8 Other problems related to social environment
CPT/HCPCS: 36415; 71260; 74177; 80053; 81001; 81003; 82947; 83036; 83735; 84443; 84550; 85025; 86140; 93970; 99284-25; A9270; G0378; J0690; J1650; J7050; J7502; J7512; Q9967